=== PATIENT | male | born 1950 | race Caucasian/White ===

== ENCOUNTER 2017-12-07 07:25 | Day surgery (SDC) | payer MEDICARE, BC ==
[2012-10-11 23:49] VITALS: Ht 172.7 cm; Wt 81.6 kg
[2017-12-06 12:41] LABS: CALC OSMOLALITY 272 mosm/kg (275-300); CALCIUM 9.1 mg/dL (8.5-10.1); CARBON DIOXIDE 31.7 mmol/L (21.0-32.0); CHLORIDE - SERUM 98 mmol/L (98-107); GLUCOSE 129 mg/dL (74-106); POTASSIUM - SERUM 3.7 mmol/L (3.5-5.1); SODIUM 136 mmol/L (136-145); UREA NITROGEN 9 mg/dL (7-18); eGFR NON AFRICAN AMERICAN 79 mL/min (90-120)
[2017-12-06 13:00] LABS: BASOPHILS 0.1 % (0-2); EOSINOPHILS 0.8 % (0-7); HEMATOCRIT 37.8 % (42.0-54.0); HEMOGLOBIN 13.7 g/dL (13.5-17.5); IMMATURE GRANULOCYTES 0.1 % (0-5); LYMPHOCYTES 38.1 % (15-50); MCHC 36.2 g/dL (31.0-37.0); MCV 93.8 fL (80.0-100.0); MEAN PLATELET VOLUME 9.9 fL (7.4-10.4); MONOCYTES 8.2 % (2-11); NEUTROPHILS 52.7 % (40-80); PLATELET COUNT 211 10x3/uL (130-400); RBC 4.03 10x6/uL (4.20-6.10); RDW 12.7 % (11.5-14.5); WBC 7.2 10x3/uL (4.8-10.8)
[~2017-12-07] VITALS: Ht 172.7 cm; Wt 81.6 kg
--- NOTE | ~2017-12-07 | OP ---
PATIENT NAME: NADINE HENSLEY MEDICAL RECORD: [id number] :48 LOCATION:HOOD ADMISSION DATE: SURGEON: ELTON URBINA MD DATE OF OPERATION: 12/07/2017 PREOPERATIVE DIAGNOSES: 1. Bilateral inguinal hernias. 2. Umbilical hernia. 3. Hypertension. 4. Hypercholesterolemia. 5. Coronary artery disease. 6. Diabetes mellitus. POSTOPERATIVE DIAGNOSES: 1. Bilateral inguinal hernias. 2. Umbilical hernia. 3. Hypertension. 4. Hypercholesterolemia. 5. Coronary artery disease. 6. Diabetes mellitus. PROCEDURE: 1. Bilateral inguinal hernia repairs with medium PHS mesh. 2. Umbilical hernia repair with 4.3 cm Ventralex mesh. SURGEON: Elton Urbina MD ASSISTANT INFANT TODDLER TEACHER: Vania Gregorio APRN REPORT OF PROCEDURE: The patient's abdomen and groins were prepped and draped in sterile fashion. The left groin was approached first. An oblique incision was made above the inguinal ligament. Electrocautery was used to dissect through the subcutaneous tissues down to the external oblique fascia. This fascia was opened up to the external ring using electrocautery. The spermatic cord was elevated and a Yuriy was placed around it. The patient had a large collection of cord lipoma, which was high ligated with 3-0 silk tie. The patient's ilioinguinal nerve was found and high ligated. The patient did have an indirect hernia defect and this was freed up from the surrounding tissues and pushed back into the abdominal cavity. A window was made in the inguinal floor and the preperitoneal space of Retzius was opened up in all directions. A medium PHS mesh was inserted and sutured down on all 4 sides using interrupted 0 Vicryl. We irrigated out the wound with normal saline. The external oblique fascia was then closed with running 2-0 Vicryls and Brady's was closed with interrupted 3-0 Vicryl. Then, 6 mL of 1% lidocaine with epinephrine was infused in the surrounding tissues and the skin incision was closed with running subcutaneous 5-0 Monocryl. We then approached the right side. An oblique incision was made above the inguinal ligament. Electrocautery was used to dissect through the subcutaneous tissues to the external oblique fascia. This fascia was opened up to the external ring using electrocautery. The spermatic cord was elevated and a [place] was placed around it. The patient has a large cord lipoma, but no hernia defect was visible. The cord lipoma was freed up from the spermatic cord and high ligated with a 3-0 silk. A window was made in the inguinal floor and a medium PHS mesh was inserted after the preperitoneal space of Retzius was opened up. This mesh was sutured down on all 4 sides using multiple interrupted 0 Vicryls. The wound was then irrigated out with normal OPERATIVE REPORT [id number] NADINE HENSLEY saline. The ilioinguinal nerve had been found and high ligated on this side as well. The external oblique fascia was closed with running 2-0 Vicryl, Brady's was closed with interrupted 3-0 Vicryl. We then infused 10 mL of 0.25% Marcaine with epinephrine into the surrounding tissues. The skin incision was closed with running subcutaneous 5-0 Monocryl. We then approached the umbilical hernia and a semicircular infraumbilical incision was made and electrocautery was used to dissect through subcutaneous tissues and through the umbilical stalk. The patient had a small umbilical hernia defect. As we dissected the fascia free on all sides, there was noted to be 2 other small hernia defects present both with fatty tissue within it. The bridge between the 2 larger defects, which were in the midline was opened up and the subcutaneous subfascial tissues were freed up. A 4.3 cm Ventralex mesh was placed in an underlay fashion and sutured down on all 4 sides using interrupted 0 Prolenes. The fascia was then closed transversely using running 0 Vicryl. The umbilicus was tacked down to the fascia using a single interrupted 3-0 Vicryl. The subcutaneous tissues were reapproximated with interrupted 3-0 Vicryl and the skin was then closed with running subcutaneous 5-0 Monocryl. A 10 mL of 0.25% Marcaine plain were infused into the surrounding tissues and the wounds were then all dressed appropriately. COMPLICATIONS: None. CONDITION: Stable. ANESTHESIA: General endotracheal and local. BLOOD LOSS: 30 mL. TRANSINT:[id number] Voice Confirmation ID: [id number] DOCUMENT ID: [id number] ELTON URBINA MD at 1409 CC: DEVAN BRO MD [id number] DICTATION DATE: 12/07/171221 GRINDER SET UP OPERATOR THREAD: 12/07/17 1232 [facility] 12/07/[address] [facility] [address] [id number]
[~2017-12-07 07:25] MED LIST: ALLEGRA ALLERG180 MG PO; AMBIEN10 MG PO; ASPIRIN EC81 M1 PO; ASPIRIN325 MG PO; BAYER CHEWABLE81 MG PO; CARAFATE1 G/10 ML PO; CELEXA20 MG PO; FLUTICASONE PRO16 GM NS; GLUCOPHAGE1000 MG PO; LISINOPRIL-HCTZ1 T13 PO; LOVAZA1 G PO; METAMUCIL1042 GM; PLAVIX75 MG PO; PRAVACHOL40 MG PO; PROTONIX40 MG PO; SOMA350 MG PO; TOPROL XL100 MG PO; ZOLOFT100 MG PO
[2017-12-07] MEDS ORDERED: NORCO 10-325 TA1 TAB PO (12:16)
== END 2017-12-07 17:40 | disposition home or self-care (01) ==
LOC: D.OPS 07:25 → D.PAN 10:45 → D.OPS 11:30
PROVIDERS: Surgery
DX: K40.20 Bilateral inguinal hernia, without obstruction or gangrene, not specified as recurrent (principal); K42.9 Umbilical hernia without obstruction or gangrene; D17.6 Benign lipomatous neoplasm of spermatic cord; I10 Essential (primary) hypertension; E78.00 Pure hypercholesterolemia, unspecified; I25.10 Atherosclerotic heart disease of native coronary artery without angina pectoris; E11.9 Type 2 diabetes mellitus without complications; Z01.812 Encounter for preprocedural laboratory examination

== ENCOUNTER → 2017-12-22 08:41 | Outpatient (CLI) | payer MEDICARE, BC ==
[2012-10-11 23:49] VITALS: BMI 28.0
[~2017-12-22 08:41] MED LIST changes: +NORCO 10-325 TA1 TAB PO
== END | disposition home or self-care (01) ==
LOC: D.RAD 12-17 08:00
DX: R22.2 Localized swelling, mass and lump, trunk (principal)

== ENCOUNTER → 2018-12-16 09:49 | Outpatient (CLI) | payer MEDICARE, BC ==
[2012-10-11 23:49] VITALS: BMI 28.0
[~2018-12-16 09:49] MED LIST changes: +BETAPACE 80 MG80 MG PO; +ELIQUIS5 MG PO
== END | disposition home or self-care (01) ==
LOC: D.HCCECHO 09:49
PROVIDERS: ATTEND Internal Medicine Cardiovascular Disease
DX: I25.10 Atherosclerotic heart disease of native coronary artery without angina pectoris (principal)

== ENCOUNTER 2019-01-24 10:41 | Outpatient (CLI) | payer MEDICARE, BC ==
[~2019-01-24] VITALS: Ht 172.7 cm; Wt 81.8 kg
--- NOTE | ~2019-01-24 | HEMODYNAMI ---
PATIENT:NADINE HENSLEY MEDICAL RECORD: [id number] : 48 LOCATION:DDMITRY ADMISSION DATE: 01/24/19 Generatedon:01/24/201913:05 Patient name: NADINE HENSLEY Patient #: [id number] SSN: [id number] : 1950 Date of study: 01/24/2019 Page: Of Hemodynamic Procedure Report Patient Data Patient Demographics Procedure consent was obtained First Name: NADINE Gender: Male Last Name: AYDEN : 1950 [facility] Initial: [place] Age: 68 year(s) Patient #: [id number] Race: Unknown SSN: [id number] Additional ID: [id number] Contact details Address: [address] [place] [address] State: [place] City: [place] Zip code: [address] Past Medical History Allergies Allergen Reaction Date Comments Reported Other allergy 01/24/2019 lipitor, morphine Admission Admission Data Admission Date: 01/24/2019 Admission Time: 10:41 Arrival Date: 01/24/2019 Arrival Time: 0:00 Insurance Payor: Medicaid, Private health insurance Height (in.): 68 BSA: 1.93 (m2) Height (cm.): 172.72 BMI: 26.46 (kg/m2) Weight (lbs.): 174 Weight (kg.): 78.93 Lab Results Lab Result Date: 01/24/2019 Lab Result Time: 0:00 Biochemistry Name Units Result Min Max BUN mg/dl 12 --(-*--)-- 7 18 Creatinine mg/dl 0.7 --(*---)-- 0.6 1.3 CBC Name Units Result Min Max Hemoglobin g/dl 12.3 *-(----)-- 13.5 17.5 Procedure Procedure Types Cath Procedure Diagnostic Procedure Cardioversion External Procedure Description Procedure Date Procedure Date: 01/24/2019 Procedure Start Time: 12:52 Procedure Staff Name Function Harish Montgomery MD Performing Physician Ro Lama RT Monitor Inder Eid RN Nurse Chase Martinez Jr CASER Additional personnel Procedure Medications Medication Administration Route Dosage 0.9% NaCl I.V. 100 ml/hr Oxygen etCO2 Nasal cannula 5 l/min Refer to Anesthesia Notes for Sedation Medications Hemodynamics Rest BSA: 1.93 (m2) O2 Consumption: Estimated: 262.48 (ml/min) O2 Consumption indexed : Estimated:136 (ml/min/m) Pre Cath Intra NCS Post Cath Vital Signs Time Heart Resp SPO2 etCO2 NIBP (mmHg) Rhythm Pain Sedation Rate (ipm) (%) (mmHg) Status Level (bpm) 12:55:25 79 14 100 31.7 197/119(156) NSR 0 (11) 10(A) , No pain 12:59:45 63 16 100 19.2 160/94(115) NSR 0 (11) 10(A) , No pain 13:01:50 61 18 99 23.6 147/80(107) NSR 0 (11) 10(A) , No pain Medications Time Medication Route Dose Verified Delivered Reason Notes Effective ness by by 12:55:50 0.9% NaCl I.V. 100 Inder Skinnerothy Per ml/hr Ragini Eid physician RN RN 12:56:02 Oxygen etCO2 5 Inder Loving for low Nasal l/min Ragini Eid 02 sats cannula RN RN 12:56:12 Refer to Inder Loving for Anesthesia Ragini Eid sedation Notes for RN RN Sedation Medications Procedure Log Time Note 12:45:04 Informed consent obtained and on chart 12:45:26 Patient Height : 68 inches 12:45:29 Patient Weight : 174 lbs 12:45:57 Arrival Date: 01/24/2019 12:00:00 AM 12:46:08 Insurance Payor : Private health insurance, Medicaid 12:47:40 Lab Result : Creatinine 0.7 mg/dl 12:47:40 Lab Result : BUN 12 mg/dl 12:47:40 Lab Result : Hemoglobin 12.3 g/dl 12:48:10 Procedure Status Elective Heart Cath (OP). 12:48:13 Inder Eid RN sent for patient. Start room use. 12:48:15 Time tracking: Regular hours (M-F 7:00 - 5:00) 12:48:19 Plan of Care:Hemodynamics will remain stable., Cardiac rhythm will remain stable., Comfort level will be maintained., Respiratory function will remain adequate., Patient/ family verbilizes understanding of procedure., Procedure tolerated without complication., Recovers from procedure without complications.. 12:48:24 Patient received from Pre/Post Procedure Room to CCL 1 Alert and oriented. Tansferred to table in Supine position. 12:48:26 Warm blankets applied, and dayana hugger turned on for patient comfort. 12:48:27 Correct patient and procedure confirmed by team. 12:48:28 ECG and BP/O2 sat monitors applied to patient. 12:48:41 Quick Combo opened to sterile field. 12:49:34 Vital chart was started 12:49:42 Full Disclosure recording started 12:49:57 H&P Date Dictated: 01/17/2019 Within 30 days and on chart.. 12:50:00 Pre-procedure instructions explained to patient. 12:50:02 Family in waiting room. 12:50:04 Patient NPO since Midnight. 12:50:23 Patient allergic to Other allergylipitor, morphine 12:50:26 Is the patient allergic to Iodine/contrast media? No. 12:50:28 Was the patient premedicated? Yes 12:50:30 Is patient on blood thinner?No 12:50:31 Patient diabetic? Yes. 12:50:33 If diabetic: On Metformin? No 12:50:38 Snore? Yes 12:50:40 Sleep apnea? No 12:50:46 Dentures? Yes ? 12:50:58 IV patent on arrival in left forearm with 0.9% NaCl at KVO. 12:51:02 Lab results completed and on chart. 12:51:10 Alarms reviewed by R. N. 12:51:10 Sharps counted by scrub and verified by R.N. 12:51:12 Physician arrived 12:51:13 --------ALL STOP TIME OUT------ 12:51:14 Final Timeout: patient, procedure, and site verified with staff and physician. All members of the team are in agreement. 12:51:19 Fire Safety Assessment: A--An alcohol-based skin anteseptic being used preoperatively., C--Open oxygen or nitrous oxide is being used., D--An ESU, laser, or fiber-optic light is being used. 12:51:24 Physical assessment completed. ASA score P 3 - A patient with severe systemic disease as per Harish Montgomery MD. 12:51:32 Sedation plan: TIVA Medication:Propofol 12:52:55 Chase Martinez Jr CASER present and monitoring patient for TIVA. 12:52:57 Procedure started. 12:53:15 Quick combo pads placed on patients chest and back. 12:55:50 0.9% NaCl 100 ml/hr I.V. was administered by Inder Eid RN; Per physician; Verbal order read back and verified. 12:56:02 Oxygen 5 l/min etCO2 Nasal cannula was administered by Inder Eid RN; for low 02 sats; Verbal order read back and verified. 12:56:12 Refer to Anesthesia Notes for Sedation Medications was administered by Inder Eid RN; for sedation; Verbal order read back and verified. 12:58:09 Defibrillator synced and charged to 200 Joules. 12:58:59 Shock delivered. 12:59:02 Patient cardioverted to sinus rhythm . 12:59:14 Procedure ended.(Physican Out) 13:00:03 Post procedure rhythm: sinus rhythm 13:00:27 Operative report dictated upon procedure completion. 13:00:28 See physician's report for complete and final results. 13:00:30 Report given to Pre/Post Procedure Room. 13:00:35 Patient transfered to Pre/Post Procedure Room with Stretcher. 13:02:14 End room use (Document Last) 13:02:35 End room use (Document Last) 13:05:06 Vital chart was stopped Device Usage Item Manufacture Quantity Catalog Hospital Part Current Minimal Lot# / Name Number Charge Number Stock Stock Seri al# Code Glazeon 1 [id number] Combo Signature Audit [place] Stage Time Signature Unsigned Intra-Procedure 01/24/2019 Ro Lama 1:02:36 PM RT(R) Intra-Procedure 01/24/2019 Harish Montgomery MD 1:03:19 PM Intra-Procedure 01/24/2019 Inder 1:05:05 PM Ragini [id number] [place] [address]
[~2019-01-24 10:41] MED LIST changes: -BETAPACE 80 MG80 MG PO; -ELIQUIS5 MG PO
[2019-01-24] MEDS ORDERED: BETAPACE 80 MG80 MG PO (10:59)
[2019-01-24] MEDS ORDERED: ELIQUIS5 MG PO (11:00)
[2019-01-24 11:18] VITALS: BP 187/115; Ht 172.7 cm; Wt 81.8 kg
[2019-01-24 11:33] LABS: BASOPHILS 0.2 % (0-2); EOSINOPHILS 1.1 % (0-7); HEMATOCRIT 35.1 % (42.0-54.0); HEMOGLOBIN 12.3 g/dL (13.5-17.5); IMMATURE GRANULOCYTES 0.3 % (0-5); LYMPHOCYTES 31.3 % (15-50); MCH 33.6 pg (26.0-34.0); MCV 95.9 fL (80.0-100.0); MONOCYTES 9.4 % (2-11); NEUTROPHILS 57.7 % (40-80); PLATELET COUNT 225 10x3/uL (130-400); RBC 3.66 10x6/uL (4.20-6.10); RDW 12.7 % (11.5-14.5); WBC 6.2 10x3/uL (4.8-10.8)
[2019-01-24 11:43] LABS: CALC OSMOLALITY 278 mosm/kg (275-300); CALCIUM 9.3 mg/dL (8.5-10.1); CARBON DIOXIDE 26.5 mmol/L (21.0-32.0); CHLORIDE - SERUM 102 mmol/L (98-107); CREATININE - SERUM 0.7 mg/dL (0.6-1.3); GLUCOSE 116 mg/dL (74-106); POTASSIUM - SERUM 3.8 mmol/L (3.5-5.1); SODIUM 139 mmol/L (136-145); UREA NITROGEN 12 mg/dL (7-18); eGFR NON AFRICAN AMERICAN > 90 mL/min (90-120)
[2019-01-24 11:44] LABS: INR 1.28 (0.85-1.17); PROTIME 15.4 SECONDS (11.6-15.0)
--- NOTE | 2019-01-24 13:10 | NUR ---
PT RECEIVED AWAKE AND ALERT FROM CHIEF DISPATCHER POST SUCCESSFUL CARDIOVERSION. IV PATENT INFUSING VIA ORDERS TO L ARM. PT DENIES PAIN OR DISCOMFORT. SMALL REDDENED AREA TO MIDDLE UPPER CHEST. HR NSR RATE 63, BP 158/89, RR 14, SAT 99. PT PLACED ON CARDIAC MONITORS AND O2 AT 2L/NC. PT POSITIONED IN BED FOR COMFORT, AT BS, CALL LIGHT IN REACH
--- NOTE | 2019-01-24 13:35 | NUR ---
PT SITTING UP IN BED, DENIES PAIN OR DISCOMFORT. HR 61, BP 161/79, RR 17. CALL LIGHT IN REACH, DR CASE IN AND SPOKE WTIH PT AND REGARDING PROCEDURE RESULTS AND PLAN OF CARE.
--- NOTE | 2019-01-24 14:00 | NUR ---
DISCHARGE INSTRUCTIONS REVIEWED W PT AND , BOTH VERBALIZED UNDERSTANDING. HR REMAINS IN NSR. IV REMOVED W CATH INTACT, MONITORS AND O2 REMOVED AND PT UP TO DRESS FOR DISCHARGE.
--- NOTE | 2019-01-24 14:15 | NUR ---
PT DISCHARGED VIA WC TO WAITING IN PRIVATE VEHICLE. PT HAD ALL BELONGINGS AND DISCHARGE INFORMATION.
== END 2019-01-24 14:15 | disposition home or self-care (01) ==
LOC: D.CATH 10:41
PROVIDERS: ATTEND Internal Medicine Cardiovascular Disease
DX: I48.91 Unspecified atrial fibrillation (principal)

== ENCOUNTER → 2019-05-10 09:16 | Outpatient (CLI) | payer MEDICARE, BC ==
[2019-04-12 12:22] VITALS: BMI 25.9
[~2019-05-10 09:16] MED LIST changes: +BETAPACE 80 MG80 MG PO; +ELIQUIS5 MG PO
== END | disposition home or self-care (01) ==
LOC: D.HCCARDIO 09:16
PROVIDERS: ATTEND Internal Medicine Cardiovascular Disease
DX: I25.10 Atherosclerotic heart disease of native coronary artery without angina pectoris (principal)

== ENCOUNTER 2019-05-24 10:52 | Outpatient (CLI) | payer MEDICARE, BC ==
[~2019-05-24] VITALS: Ht 172.7 cm; Wt 79.5 kg
--- NOTE | ~2019-05-24 | HEMODYNAMI ---
PATIENT:NADINE HENSLEY MEDICAL RECORD: [id number] : 48 LOCATION:[facility] ADMISSION DATE: 05/24/19 Generatedon:05/24/201914:13 Patient name: NADINE HENSLEY Patient #: [id number] : 1950 Date of study: 05/24/2019 Page: Of Hemodynamic Procedure Report Patient Data Patient Demographics Procedure consent was obtained First Name: NADINE Gender: Male Last Name: AYDEN : 1950 [facility] Initial: [place] Age: 68 year(s) Patient #: [id number] Race: SSN: [id number] Additional ID: [id number] Contact details Address: [address] [place] [address] State: [place] City: [place] Zip code: [address] Past Medical History Allergies Allergen Reaction Date Comments Reported Other 01/24/2019 lipitor, morphine allergy Other 04/12/2019 ATORVASTATIN, LEVAQUIN, allergy MORPHINE Other 05/24/2019 LIPITOR,MORPHINE/LEVAQUIN allergy Admission Admission Data Admission Date: 05/24/2019 Admission Time: 10:52 Admit Source: Other Lab Results Lab Result Date: 05/24/2019 Lab Result Time: 0:00 Biochemistry Name Units Result Min Max BUN mg/dl 10 --(-*--)-- 7 18 Creatinine mg/dl 0.9 --(-*--)-- 0.6 1.3 eGFR ml/min 88.21045 -*(----)-- 90 120 NONAFRICAN CBC Name Units Result Min Max Hematocrit % 38.9 *-(----)-- 42 54 Hemoglobin g/dl 13.5 --(*---)-- 13.5 17.5 Procedure Procedure Types Cath Procedure Diagnostic Procedure LHC LHC w/Coronaries Sedation Charges Moderate Sedation up to 15 minutes Procedure Description Procedure Date Procedure Date: 05/24/2019 Procedure Start Time: 13:58 Procedure End Time: 14:11 Procedure Staff Name Function Harish Montgomery MD Performing Physician Nellie Cedillo RT Monitor Rosalba Rivera RT Scrub Mimi Maye RT Demand Planning Analyst Soco Small RN Nurse Procedure Data Cath Procedure Fluoroscopy Diagnostic fluoroscopy Total fluoroscopy Time: 1.7 time: 1.7 min min Diagnostic fluoroscopy Total fluoroscopy dose: 366 dose: 366 mGy mGy Contrast Material Contrast Material Type Amount (ml) Isovue 300 59 Entry Location Entry Primary Successful Side Size Upsize Upsize Entry Closure Succes sful Closure Location (Fr) 1 (Fr) 2 (Fr) Remarks Device Remarks Femoral Right 5 Fr Exoseal artery Estimated blood loss: 5 ml Diagnostic catheters Device Type Used For End Catheter Placement MULTIPACK JL 4.0 5Fr Left Coronary catheter Angiography MULTIPACK 3DRC 5Fr Right Coronary catheter Angiography MULTIPACK Pigtail 5 Fr LV Angiography catheter Procedure Complications No complications Procedure Medications Medication Administration Route Dosage 0.9% NaCl I.V. 100 ml/hr Oxygen etCO2 Nasal cannula 2 l/min Lidocaine 2% added to field 20 Heparin Flush Bag added to field 2 bags (1000units/500ml NS) Versed I.V. 2 mg Fentanyl I.V. 50 mcg Versed I.V. 2 mg Fentanyl I.V. 50 mcg Hemodynamics Rest HGB: 13.5 (g/dl) Heart Rate: 90 (bpm) Pressure Samples Time Site Value (mmHg) Purpose Heart Use Rate(bpm) 14:06 LV 183/-4,19 Snapshot 98 14:07 AO 169/94(127) Pullback 100 14:07 LV 186/-1,16 Pullback 100 Gradients Valve Time Site 1 Site 2 Mean SEP/DFP Peak To Heart Use (mmHg) (sec/min) Peak Rate (mmHg) (bpm) Aortic 14:07 LV AO 23 26 17 100 186/-1,16 169/94(127) Calculations Valve P-P Mean Valve Index Valve Source Name Gradient Area Flow (cm2) Aortic 17 23 17 23 Snapshots Pre Cath Intra NCS Post Cath Vital Signs Time Heart Resp SPO2 etCO2 NIBP (mmHg) Rhythm Pain Sedation Rate (ipm) (%) (mmHg) Status Level (bpm) 13:46:50 101 27 100 32.9 186/119(168) A-Fib 0 (11) 10(A) , No pain 13:51:21 81 15 98 35.1 176/117(152) A-Fib 0 (11) 10(A) , No pain 13:55:43 98 13 99 35.9 165/112(138) A-Fib 0 (11) 10(A) , No pain 13:59:57 97 12 96 34.4 153/99(139) A-Fib 0 (11) 10(A) , No pain 14:04:17 96 12 97 37.4 168/122(147) A-Fib 0 (11) 9(A) , No pain 14:08:43 94 13 98 36.6 166/105(134) A-Fib 0 (11) 10(A) , No pain Medications Time Medication Route Dose Verified Delivered Reason Notes Eff ectiveness by by 13:45:44 0.9% NaCl I.V. 100 Harish Soco used for ml/hr Ulises Small cone winder 13:45:52 Oxygen etCO2 2 Harish Soco used for Nasal l/min Ulises Small procedure cannula RN 13:45:57 Lidocaine 2% added 20ml Harish Harish for local to vial Ulises Montgomery MD anesthetic field 13:46:01 Heparin Flush added 2 Harish Harish used for Bag to bags Ulises Montgomery MD procedure (1000units/500ml field NS) 13:56:25 Versed I.V. 2 mg Harish Soco for Ulises Small sedation RN 13:56:36 Fentanyl I.V. 50 Harish Soco for mcg Ulises Small sedation RN 14:01:02 Fentanyl I.V. 50 Harish Soco for mcg Ulises Small sedation RN 14:01:54 Versed I.V. 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 13:27:09 Time tracking: Regular hours (M-F 7:00 - 5:00) 13:27:14 Plan of Care:Hemodynamics will remain stable., Cardiac rhythm will remain stable., Comfort level will be maintained., Respiratory function will remain adequate., Patient/ family verbilizes understanding of procedure., Procedure tolerated without complication., Recovers from procedure without complications.. 13:38:41 Mimi Villavicencio RT(R) sent for patient. Start room use. 13:39:35 Patient received from Pre/Post Procedure Room to CCL 1 Alert and oriented. Tansferred to table in Supine position. 13:39:39 Warm blankets applied, and dayana hugger turned on for patient comfort. 13:39:40 Correct patient and procedure confirmed by team. 13:39:41 ECG and BP/O2 sat monitors applied to patient. 13:41:26 ACC Patient presents with Stable Angina CCS Anginal Class 3--Marked limitation of physical activity, angina occurs with ordinary activity.. 13:41:43 H&P Date Dictated: 05/24/2019 H&P Addendum completed by physician on day of procedure. (MUST COMPLETE FOR ALL OUTPATIENTS), New H&P dictated by physician.. 13:41:45 Pre-procedure instructions explained to patient. 13:41:47 Pre-op teaching completed and patient verbalized understanding. 13:41:51 Family in patients room. 13:41:54 Patient NPO since Midnight. 13:42:20 Patient allergic to Other allergyLIPITOR,MORPHINE/LEVAQUIN 13:42:25 Is the patient allergic to Iodine/contrast media? No. 13:42:29 Was the patient premedicated? Yes 13:42:32 Is patient on blood thinner?Yes 13:42:43 ACC The patient was administered the following blood thiners within the last 24 hours: Eliquis 13:42:47 Patient diabetic? Yes. 13:42:51 If diabetic: On Metformin? No 13:42:53 ----Pre-sedation anethsthesia assessment.---- 13:43:02 Previous problem with sedation/anesthesia? No ? 13:43:05 Snore? Yes 13:43:08 Sleep apnea? No 13:43:10 Deviated septum? No 13:43:13 Opens mouth fully? Yes 13:43:15 Sticks out tongue? Yes 13:43:19 Airway obstruction? No ? 13:43:31 Dentures? Yes IN TIGHT 13:44:23 Pre procedure: right dorsailis pedis pulse 1+ Palpable, but thready & weak; easily obliterated 13:44:47 IV patent on arrival in left forearm with 0.9% NaCl at KVO. :45:34 Lab Result : BUN 10 mg/dl :45:34 Lab Result : Creatinine 0.9 mg/dl :45:34 Lab Result : eGFR NONAFRICAN 88.83587 ml/min :45:34 Lab Result : Hemoglobin 13.5 g/dl :45:34 Lab Result : Hematocrit 38.9 % 13:45:35 Vital chart was started 13:45:42 Lab results completed and on chart. 13:45:44 0.9% NaCl 100 ml/hr I.V. was administered by Soco Samll RN; used for procedure; Verbal order read back and verified. 13:45:52 Oxygen 2 l/min etCO2 Nasal cannula was administered by Soco Small RN ; used for procedure; Verbal order read back and verified. 13:45:57 Lidocaine 2% 20ml vial added to field was administered by Harish Montgomery MD ; for local anesthetic; Verbal order read back and verified. 13:46:01 Heparin Flush Bag (1000units/500ml NS) 2 bags added to field was administered by Harish Montgomery MD; used for procedure; Verbal order read back and verified. 13:46:14 Stress Test: yes; abnormal INFERIOR AND APICALLY 13:47:37 SCAI NOT WORKING. 13:47:43 Right groin area was prepped with chlora-prep and draped in sterile fashion 13:47:45 Alarms reviewed by R. N. 13:47:46 Sharps counted by scrub and verified by R.N. 13:49:14 Rhythm: atrial fibrillation 13:49:18 Baseline sample Acquired. 13:49:22 Full Disclosure recording started 13:49:23 - 13:55:16 --------ALL STOP TIME OUT------ 13:55:17 Final Timeout: patient, procedure, and site verified with staff and physician. All members of the team are in agreement. 13:55:18 Right groin site verified by team. 13:55:24 Fire Safety Assessment: A--An alcohol-based skin anteseptic being used preoperatively., C--Open oxygen or nitrous oxide is being used., D--An ESU, laser, or fiber-optic light is being used. 13:56:13 Physical assessment completed. ASA score P 2 - A patient with mild systemic disease as per Harish Montgomery MD. 13:56:17 2) 60-89 Mildly reduced kidney function, and other findings (as for stage 1) point to kidney disease. 13:56:20 Maximum allowable contrast dose (3.7 X eGFR X 0.75)247 ml. 13:56:24 Sedation plan: IV Moderate Sedation Medication:Versed, Fentanyl 13:56:25 Versed 2 mg I.V. was administered by Soco Small RN; for sedation; Verbal order read back and verified. 13:56:31 Zero performed for pressure channel P1 13:56:36 Fentanyl 50 mcg I.V. was administered by Soco Small RN; for sedation ; Verbal order read back and verified. 13:56:51 Use device set Femoral Dx 13:56:52 ACIST Syringe (46842) opened to sterile field. 13:56:53 Bag Decanter (2002S) opened to sterile field. 13:56:54 ACIST Hand Control (63523) opened to sterile field. 13:56:54 ACIST Manifold (03715) opened to sterile field. 13:56:55 Tegaderm 4 x 4 (1626W) opened to sterile field. 13:56:56 Medline Cath Pack ([id number]) opened to sterile field. 13:56:57 DIAGNOSTIC Multipack 5Fr catheter set (ZB8432) opened to sterile field. 13:56:59 SHEATH 5FR Quail (ZGN432) opened to sterile field. 13:57:00 EMERALD Guide Wire (262-613) opened to sterile field. 13:57:16 Procedure started. 13:58:13 Local anesthetic to right femoral artery with Lidocaine 2% by Harish arnold MD.INITIAL ACCESS ONLY 14:00:39 A 5 Fr sheath was inserted into the Right Femoral artery 14:01:02 Fentanyl 50 mcg I.V. was administered by Soco Small RN; for sedation ; Verbal order read back and verified. 14:01:05 A MULTIPACK JL 4.0 5Fr catheter was advanced over the wire and used for Left Coronary Angiography. 14:01:54 Versed 2 mg I.V. was administered by Soco Small RN; for sedation; Verbal order read back and verified. 14:02:12 LCA angiography performed. 14:02:18 Injector settings: Ml/sec: 3, Volume: 6, 14:03:04 Catheter removed. 14:03:15 A MULTIPACK 3DRC 5Fr catheter was advanced over the wire and used for Right Coronary Angiography. 14:04:05 RCA angiography performed. 14:04:10 Injector settings: Ml/sec: 3, Volume: 6, 14:04:53 ACCDominant side:Right 14:05:03 Catheter removed. 14:05:10 A MULTIPACK Pigtail 5 Fr catheter was advanced over the wire and used for LV Angiography. 14:05:36 Injector settings: Ml/sec: 5, Volume: 15, 14:05:43 LV gram done using LATHAM 14:06:34 LV hemodynamics recorded. 14:06:50 EF : 60 % 14:07:15 Catheter removed. 14:07:37 EXOSEAL 5Fr (EX500) opened to sterile field. 14:08:06 Sheath removed intact; hemostasis achieved with Exoseal to the Right Femoral artery. 14:08:26 Contrast amount:Isovue 300 59ml. 14:08:30 Maximum allowable dose exceeded? No. 14:08:32 Procedure ended.(Physican Out) 14:08:52 Fluoroscopy time 01.70 minutes. 14:09:00 Fluoroscopy dose: 366 mGy 14:09:00 Flurop Dose total: 366 14:09:08 Dose Area Product 59548 mGy/cm. 14:09:12 Insertion/operative site no bleeding no hematoma. 14:09:18 Post-op/insertion site Right Femoral artery dressed using a 4 x 4 and Tegaderm. 14:09:25 Post right femoral artery:stable 14:09:28 Post Procedure Pulses reassessed and unchanged 14:09:33 Post-procedure physical assessment completed. ASA score P 2 - A patient with mild systemic disease as per Harish Montgomery MD. 14:09:38 Post procedure rhythm: unchanged. 14:09:42 Estimated blood loss: 5 ml 14:09:44 Post procedure instruction explained to patient.Patient verbalizes understanding. 14:09:46 Patient needs reinforcement of post procedure teaching. 14:10:14 Procedure type changed to Cath procedure, Diagnostic procedure, LHC, C w/Coronaries, Sedation Charges, Moderate Sedation up to 15 minutes 14:10:17 Procedure and supply charges have been captured, reviewed, submitted an d are correct. 14:10:47 Procedure Complication : No complications 14:10:52 Vital chart was stopped 14:10:54 [facility] Findings: mild to moderate CAD (<70%) 14:10:58 Operative report dictated upon procedure completion. 14:10:59 See physician's report for complete and final results. 14:11:01 Report given to Pre/Post Procedure Room. 14:11:05 Patient transfered to Pre/Post Procedure Room with Stretcher. 14:11:09 Procedure ended. 14:11:09 Full Disclosure recording stopped 14:11:39 End room use (Document Last) Device Usage Item Name Manufacture Quantity Catalog Hospital Part Current Minimal L ot# / Number Charge Number Stock Stock Serial# Code ACIST Acist 1 39165 152706 805007 862100 20 Syringe Medical (09667) Systems Inc Bag Microtek 1 2001S 555331 08038 784490 5 Decanter Medical Inc. (2001S) ACIST Hand Acist 1 87155 896475 667708 140967 5 Control Medical (72184) Systems Inc ACIST Acist 1 75597 267825 844411 671814 5 Manifold Medical (35148) Systems Inc Tegaderm 4 3M 1 1626W 456070 804732 014120 5 x 4 (1626W) Medline Medline 1 [id number] 336790 51269 958721 5 Cath Pack ([id number]) DIAGNOSTIC Cardinal 1 KS2573 021274 23870 888912 30 Multipack Health 5Fr catheter set (HR7108) SHEATH 5FR Terumo 1 HEN428 301430 933524 463140 5 Quail (CEJ340) EMERALD Cardinal 1 502-455 946958 600210 077069 5 Guide Wire Health (502-455) MULTIPACK Cardinal 1 206208 5 JL 4.0 5Fr Health catheter MULTIPACK Cardinal 1 074890 5 3DRC 5Fr Health catheter MULTIPACK Cardinal 1 262718 5 Pigtail 5 Health Fr catheter EXOSEAL 5Fr Cardinal 1 EX500 274517 400250 306956 10 (EX500) Health Signature Audit Tabiona Stage Time Signature Unsigned Intra-Procedure 05/24/2019 Nellie 2:12:09 PM Nguyen RT(R) (CV) Intra-Procedure 05/24/2019 Soco Small 2:12:41 PM RN Intra-Procedure 05/24/2019 Harish Montgomery MD 2:13:[address] [address]
[2019-05-24] MEDS ORDERED: PIOGLITAZONE15 MG PO (11:42)
[2019-05-24 12:01] VITALS: BP 196/109; Ht 172.7 cm; Wt 79.5 kg
[2019-05-24 12:19] LABS: HEMATOCRIT 38.9 % (42.0-54.0); HEMOGLOBIN 13.5 g/dL (13.5-17.5); LYMPHOCYTES 28.2 % (15-50); MCH 33.1 pg (26.0-34.0); MCHC 34.7 g/dL (31.0-37.0); MCV 95.3 fL (80.0-100.0); MEAN PLATELET VOLUME 9.4 fL (7.4-10.4); NEUTROPHILS 63.1 % (40-80); PLATELET COUNT 241 10x3/uL (130-400); RBC 4.08 10x6/uL (4.20-6.10); RDW 13.4 % (11.5-14.5); WBC 6.3 10x3/uL (4.8-10.8)
[2019-05-24 12:45] LABS: ALT (SGPT) 19 U/L (10-68); CALC OSMOLALITY 278 mosm/kg (275-300); CALCIUM 9.4 mg/dL (8.5-10.1); CARBON DIOXIDE 26.6 mmol/L (21.0-32.0); CHLORIDE - SERUM 101 mmol/L (98-107); CHOL - HDL RATIO 3.8 ratio (2.3-4.9); CHOLESTEROL, TOTAL 219 mg/dL (0-200); CREATININE - SERUM 0.9 mg/dL (0.6-1.3); GLUCOSE 117 mg/dL (74-106); HDL CHOLESTEROL 57 mg/dL (32-96); LDL CHOLESTEROL 138 mg/dL (0-100); LDL-HDL RATIO 2.4 ratio (1.5-3.5); POTASSIUM - SERUM 3.9 mmol/L (3.5-5.1); SODIUM 140 mmol/L (136-145); TRIGLYCERIDE 124 mg/dL (30-200); UREA NITROGEN 10 mg/dL (7-18); eGFR NON AFRICAN AMERICAN 89 mL/min (90-120)
--- NOTE | 2019-05-24 14:23 | NUR ---
PT ARRIVED BY STRETCHER. PLACED ON MONITORS. ASSESSMENT COMPLETED. FAMILY AT BEDSIDE.
--- NOTE | 2019-05-24 14:38 | NUR ---
RIGHT GROIN DRESSING C/D/I. NO S/S OF HEMATOMA NOTED. VSS AT THIS TIME. CALL LIGHT WITHIN REACH. FAMILY AT BEDSIDE.
--- NOTE | 2019-05-24 15:08 | NUR ---
PT RESTING COMFORTABLY. VSS. RIGHT GROIN DRESSING C/D/I. NO S/S OF HEMATOMA NOTED. CALL LIGHT WITHIN REACH. FAMILY AT BEDSIDE.
--- NOTE | 2019-05-24 15:20 | NUR ---
RIGHT GROIN DRESSING C/D/I. NO S/S OF HEMATOMA NOTED. CALL LIGHT WITHIN REACH. VSS. HEAD OF BED INC TO 30 DEGREES. TOLERATED WELL. SET UP WITH SANDWICH TRAY AND DRINK AT THIS TIME.
--- NOTE | 2019-05-24 16:00 | NUR ---
RIGHT GROIN DRESSING C/D/I. NO S/S OF HEMATOMA NOTED. DISCUSSED DISCHARGE INSTRUCTIONS WITH PT AND PT'S FAMILY. THEY VOICED UNDERSTANDING. PIV D/C'D WITH CATH TIP INTACT. TOLERATED WELL. PT INSTRUCTED TO GET UP AND DRESSED AT THIS TIME. AT BEDSIDE TO ASSIST.
--- NOTE | 2019-05-24 16:15 | NUR ---
RIGHT GROIN DRESSING C/D/I. NO S/S OF HEMATOMA NOTED. PT TAKEN DOWN TO VEHICLE BY WHEELCHAIR. NO S/S OF DISTRESS NOTED. ALL BELONGINGS AND PAPERWORK IN HAND.
== END 2019-05-24 16:15 | disposition home or self-care (01) ==
LOC: D.CATH 10:52
PROVIDERS: ATTEND Internal Medicine Cardiovascular Disease
DX: I25.119 Atherosclerotic heart disease of native coronary artery with unspecified angina pectoris (principal); R94.30 Abnormal result of cardiovascular function study, unspecified; E11.9 Type 2 diabetes mellitus without complications; E78.5 Hyperlipidemia, unspecified; I10 Essential (primary) hypertension; Z79.84 Long term (current) use of oral hypoglycemic drugs; I48.91 Unspecified atrial fibrillation; R06.00 Dyspnea, unspecified

== ENCOUNTER → 2020-06-14 13:41 | Outpatient (CLI) | payer MEDICARE, BC ==
[2019-05-24 12:01] VITALS: BMI 26.6
[~2020-06-14 13:41] MED LIST changes: +PIOGLITAZONE15 MG PO
== END | disposition home or self-care (01) ==
LOC: D.LAB 13:41
PROVIDERS: ATTEND Internal Medicine Pulmonary Disease
DX: Z11.52 Encounter for screening for COVID-19 (principal)

== ENCOUNTER → 2020-06-19 09:54 | Outpatient (CLI) | payer MEDICARE, BC ==
[2019-05-24 12:01] VITALS: BMI 26.6
[2020-06-19 11:24] LABS: BASOPHILS 0.3 % (0-2); EOSINOPHILS 2.1 % (0-7); HEMATOCRIT 38.9 % (42.0-54.0); HEMOGLOBIN 12.9 g/dL (13.5-17.5); LYMPHOCYTE ABS# 1.46 10x3/uL (1.32-3.57); LYMPHOCYTES 22.4 % (15-50); MCH 33.6 pg (26.0-34.0); MCHC 33.2 g/dL (31.0-37.0); MCV 101.3 fL (80.0-100.0); MEAN PLATELET VOLUME 10.2 fL (7.4-10.4); NEUTROPHIL ABS# 4.31 10x3/uL (1.78-5.38); NEUTROPHILS 66.2 % (40-80); PLATELET COUNT 245 10x3/uL (130-400); RBC 3.84 10x6/uL (4.20-6.10); RDW 13.2 % (11.5-14.5); WBC 6.5 10x3/uL (4.8-10.8)
== END | disposition home or self-care (01) ==
LOC: D.LAB 08:00 → D.RT 10:00
PROVIDERS: ATTEND Internal Medicine Pulmonary Disease
DX: J44.9 Chronic obstructive pulmonary disease, unspecified (principal)

== ENCOUNTER → 2020-08-01 11:19 | Outpatient (CLI) | payer MEDICARE, BC ==
[2019-05-24 12:01] VITALS: BMI 26.6
== END | disposition home or self-care (01) ==
LOC: D.ECHO 10:05 → D.RAD 11:19
PROVIDERS: ATTEND Internal Medicine Pulmonary Disease
DX: R06.09 Other forms of dyspnea (principal)